=== PATIENT | female | born 1950 | race Caucasian/White ===

== ENCOUNTER 2024-03-09 15:46 | Outpatient (REF) | payer OTHER, MEDICARE, SELFPAY ==
[2024-03-09 17:15] LABS: Anion Gap 14 (12-20); Blood Urea Nitrogen 9 mg/dL (9-16); Calcium 9.7 mg/dL (8.4-10.2); Carbon Dioxide 29 mmol/L (22-29); Chloride 91 mmol/L (96-108); Estimated Glomerular Filt Rate > 60; Glucose Random 123 mg/dL (60-115); Potassium 3.5 mmol/L (3.3-5.1); Sodium 130 mmol/L (135-145)
[2024-03-09 17:41] LABS: Erythrocyte Sedimentation Rate 18 MM/HR (0-20)
[2024-03-13 17:19] LABS: Lyme Abs Screen <0.90 index
== END 2024-03-09 15:47 | disposition home or self-care (01) ==
LOC: HO.LAB 15:46
PROVIDERS: PCP Internal Medicine; Visit Provider Psychiatry & Neurology Neurology
DX: G44.229 Chronic tension-type headache, not intractable (principal)
CPT/HCPCS: 36415; 80048; 85652; 86617; 86618

== ENCOUNTER 2025-01-10 10:30 | Outpatient (AMB) | payer MEDICARE, OTHER, SELFPAY ==
--- NOTE | 2025-01-10 10:41 | A.OFFVIS_ITS ---
Intake Visit Reasons: 6M [facility] Allergies ampicillin Allergy (Unknown, Verified 01/08/25 09:55) Unknown levofloxacin (From Levaquin) Allergy (Unknown, Verified 01/08/25 09:55) Unknown Medication List - Last Reconciled 01/10/25 by Shari Morgan MD epinephrine subcut ezetimibe 10 mg PO DAILY fexofenadine 180 mg PO DAILY fluticasone propionate 50 mcg/actuation 2 sprays intranasal DAILY hydrochlorothiazide 25 mg PO DAILY latanoprost 0.005% 1 drp ophthalmic (eye) BEDTIME levothyroxine 50 mcg PO QAM lisinopril 2.5 mg PO DAILY ondansetron 4 mg PO DAILY rosuvastatin 10 mg PO DAILY sennosides-docusate sodium 8.6-50 mg (Senexon-S) 1 - 2 tabs PO BID PRN tramadol 50 mg PO Q6H trazodone 150 mg PO BEDTIME PRN varenicline tartrate 1 mg PO BID HPI Comments Details: 74 years old woman with chronic tension-type headaches, analgesic rebound headaches, and tendency for occipital neuralgia. [facility] Medical History (Updated 01/10/25 @ 10:42 by Shari Morgan MD) Chronic tension type headache Physical Exam Neuro Other: Mental Status: Alert and oriented to person, place, and time. Normal attention. Normal spontaneous speech, fluency, and comprehension. No obvious issues with mood and memory. Affect is appropriate. Cranial Nerves: CN II: Visual ruiz full to confrontation, visual acuity intact. CN III, IV, : Pupils equal, round, reactive to light and accommodation. Extraocular movements are normal. CN V: Facial sensation is normal. CN VII: Facial movements symmetrical. CN VIII: Hearing intact to bedside conversation is normal. CN IX, X: Palate elevates symmetrically. CN XI: Shoulder shrug and head turn symmetrical. CN XII: Tongue midline without atrophy or fasciculations. Extrapyramidal: Full facial expressions and blinking. No rigidity. Movements are appropriate with no tremor or abnormality. Speech: Normal; no dysarthria or tremor. Assessment & Plan Assessment & Plan (1) Chronic tension type headache: Comment: Meds tried for headaches: Propranolol, fiorecet, tramadol, topiramate MRI brain at [facility] in Feb 2024: Mild diff atrophy, mild mVD, small choroid plexus cyst Code(s): G44.229 - Chronic tension-type headache, not intractable Category: Medical Qualifiers: Intractability: intractable Qualified Code(s): G44.221 - Chronic tension-type headache, intractable Plan Impression: a: Chronic tension type headaches b: Chronic stress related to her brother's psychiatric disease Rec: a: Duloxetine 20mg bid b: Walk daily Medications: New duloxetine 20 mg PO BID 180 caps 0RF Coding Level of Care Code Est Pt Level 4 (13353) Diagnoses Chronic tension-type headache, intractable G44.221 Intractability: intractable
== END 2025-01-10 10:55 | disposition home or self-care (01) ==
LOC: HO.HSM 10:31
PROVIDERS: PCP Internal Medicine; Referring Provider Internal Medicine; Visit Provider Psychiatry & Neurology Neurology
DX: G44.221 Chronic tension-type headache, intractable (principal)
CPT/HCPCS: 99214

== ENCOUNTER → 2025-01-10 10:30 | Outpatient (BNVA) | payer MEDICARE, OTHER, SELFPAY | PROVIDERS: PCP Internal Medicine; Referring Provider Internal Medicine; Visit Provider Psychiatry & Neurology Neurology | DX: G44.221 Chronic tension-type headache, intractable (principal) | CPT/HCPCS: 99212 ==

== ENCOUNTER 2025-02-07 09:51 | Outpatient (AMB) | payer MEDICARE, OTHER, SELFPAY ==
--- NOTE | 2025-02-07 09:53 | A.OFFVIS_ITS ---
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 At the time of her last visit, she was tried on duloxetine 20 mg twice daily and advised for daily walking/exercise. She tells me today that unfortunately she felt ?horrible? when she took the duloxetine. She is no longer taking duloxetine. In the past, they have tried numerous medications for control of her headaches including propranolol, Fioricet, tramadol, and topiramate. She reports that most of these medications gave her side effects and at the time of the trials, her headaches were in general much worse. She tells me that currently her headaches are occurring a couple times per week but are relatively short-lived occurring for approximately 15 minutes up to a couple of hours at maximum. Her headaches are frontal or occipital radiating into the neck. She describes her pain is a dull aching sensation. She denies any light sensitivity, sound sensitivity, or other notable symptoms with the headaches. Generally, her headaches are triggered by weather changes or acute stress. She tells me that her brother has a diagnosis of schizophrenia and is very paranoid. He calls her several times per day and she finds that most of her stress is related to his psychiatric needs. She has been implementing lifestyle changes in efforts to help her headaches. She has been engaging in moderate levels of daily exercise, has been doing yoga, and has been using breathing techniques when she does develop stress and a feeling of tension. She finds that these techniques have been remarkably beneficial in terms of headache control. She notes that her headaches has been daily in the past and with these modalities, she has found that her headaches are significantly less bothersome and are not currently part of her day-to-day life. She is currently not taking anything specifically for headache though she does note that she started taking magnesium recently for some leg cramping that she was having. She takes Tylenol on occasion when her headaches last more than 15 minutes or so. This works well for acute therapy and she is using it sparingly. Prior medication trials: Propranolol Topiramate Duloxetine Tramadol Fioricet Past workup: MRI of the brain at [facility] February 2024: Mild atrophy, mild microvascular disease, small choroid plexus cyst. [facility] Medical History (Updated 01/10/25 @ 10:42 by Shari Morgan MD) Chronic tension type headache Review of Systems Const All systems reviewed & are unremarkable except as noted in HPI and below Physical Exam Vital Signs: Last Vital Signs Pulse 73 02/07/25 10:02 Resp 16 02/07/25 10:02 BP 128/80 02/07/25 10:02 Pulse Ox 97 02/07/25 10:02 Oxygen Delivery Method Room Air 02/07/25 10:02 BMI result Body Mass Index 22.9 Const General: cooperative, healthy appearing, comfortable and no acute distress Nutritional Appearance: well nourished Orientation/consciousness: patient oriented x3 Limitations: no limitations HEENT Head: Yes normal to inspection and Yes normocephalic Eyes General: appearance normal, both eyes and all related structures Visual Ruiz: normal visual ruiz by confrontation Alignment and Position: alignment normal Periorbital: periorbital findings normal Eyelids: Yes eyelids normal Conjunctivae: conjunctivae normal Sclerae: sclerae normal Back/Spine/Pelvis Other: Bilateral upper trapezius tightening with some trigger points to the right trapezius muscle. Neuro General: patient oriented x3 Cranial nerves: Yes CN's II-XII intact bilaterally and Yes Facial sensation intact/muscles of mastication intact Cognition (Neuro): normal cognition Gait exam (Neuro): Normal gait present Motor exam (neuro): 5/5 motor strength present throughout and no tremor noted Sensory Exam: double simultaneous stimulation for sensation normal Romberg Test: Negative Pupils: Normal pupillary reactivity/response: bilateral Psych Appearance: grossly normal Mental Status: mental status grossly normal Speech and movement: Normal speech and movement present and Clear speech present Affect: normal affect Attitude: cooperative Thought process: Normal thought process present Thought content: Normal thought content present Insight: Good insight present (Psych) Judgement: Good judgement present (Psych) Assessment & Plan Assessment & Plan (1) Chronic tension type headache: Comment: Meds tried for headaches: Propranolol, fiorecet, tramadol, topiramate MRI brain at [facility] in Feb 2024: Mild diff atrophy, mild mVD, small choroid plexus cyst Code(s): G44.229 - Chronic tension-type headache, not intractable Category: Medical Qualifiers: Intractability: intractable Qualified Code(s): G44.221 - Chronic tension-type headache, intractable Plan: . Mara Griffin is a 74-year-old female patient with a past history of thyroid disease and insomnia who is following in the clinic for tension-type headaches. Despite trials of numerous therapies in the past, she has not had much luck with pharmaceutical management as she can be very sensitive to medication. She finds that implementation of exercise, yoga, and breathing techniques has made the most difference. She does continue to have triggered headaches especially with high stress levels. Typically, headaches last only a proximally 15 minutes as she can utilize breathing techniques at onset of headache. She feels that her headaches are really very well-controlled with these modalities at this time and is not interested in any new pharmaceutical agents. We did discuss some nutraceuticals including magnesium and riboflavin. She has already started some magnesium supplementation and I did give recommendations on dosing specific to headache and gave her information on riboflavin supplementation that she can try concurrently with the use of magnesium if she wishes. For now, she would like to follow up on an as-needed basis as she feels that she is doing relatively well. Coding Level of Care Code Est Pt Level 3 (40659) Diagnoses Chronic tension-type headache, intractable G44.221 Intractability: intractable
[2025-02-07 10:02] VITALS: BP 128/80; PULSE 73; RESP 16; O2SAT 97; BMI 22.9
--- OUTSIDE RECORDS SUMMARY | 2025-02-07 11:50 | XMS_ITS | Clinical Summary ---
Author Organization [facility] Address [address] [place] [address] Phone Care Team Providers Care Direct Support Staff Name Role Phone Melissa Copeland MD Primary Care Provider [phone] Allergies No known active allergies Social History Tobacco Use Types Packs/Day Years Used Date Smoking Tobacco: Never Assessed Comments Unknown Sex and Gender Information Value Date Recorded Sex Assigned at Not on file Legal Sex Female 9:21 PM EST Gender Identity Not on file Sexual Orientation Not on file Plan of Treatment Upcoming Encounters Date Type Department Care Team ([facility] st Contact Info) Description 08/21/2025 10:00 AM EDT Office Visit Gastroenterology - [address] [facility] [address] [place] [address] Tena Oropeza, LAURA [address] [facility] [address] [place] [address] Health Maintenance Due Date Last Done Comments Breast Cancer Screening 1950 Colorectal Cancer Screening: Colonoscopy 1950 DTaP,Tdap,and Td Vaccines (1 - Tdap) 10/19/1971 Zoster Vaccines (1 of 2) 2002 Pneumococcal Vaccine: 50+ Years (2 of 2 - PCV20 or PCV21) 11/13/2020 11/14/2019 Cholesterol Screening (Lipid Panel) 03/21/2022 Falls Risk Assessment 03/21/2022 Hepatitis C Screening 03/21/2022 Medicare Annual Wellness Visit 03/21/2022 Osteoporosis Screening (Bone Density Screening) 03/21/2022 Social Influencers of Health Screening 03/21/2022 Depression Screening 04/19/2024 Hypertension/CHF/CAD Annual BMP Blood Test 08/26/2024 COVID-19 Vaccine (2 - 2024-2 6 season) 2024 07/10/2020 Influenza Vaccine (#1) 2024 , 01/24/2020, 12/27/2018 RSV Immunization Adult Patients (1 - 1-dose 75+ series) 10/19/2027 HIB Vaccines Aged Out No longer eligi ble based on patient's age to complete this topic HPV Vaccines Aged Out No longer eligi ble based on patient's age to complete this topic Hepatitis A Vaccines Aged Out No long er eligible based on patient's age to complete this topic Hepatitis B Vaccines Aged Out No long er eligible based on patient's age to complete this topic IPV Vaccines Aged Out No longer eligi ble based on patient's age to complete this topic MMR Vaccines Aged Out No longer eligi ble based on patient's age to complete this topic Meningococcal ACWY Vaccine Aged Out N o longer eligible based on patient's age to complete this topic Meningococcal B Vaccine Aged Out No l onger eligible based on patient's age to complete this topic RSV Immunization Patients Under 20 months Aged Out No longer eligible b ased on patient's age to complete this topic Varicella Vaccines Aged Out No longer eligible based on patient's age to complete this topic Insurance MEDICARE [facility] Care Teams Direct Support Staff Relationship Specialty Start Date End Date Melissa Copeland MD [address] [place] [address] PCP - General 03/20/10
== END 2025-02-07 10:25 | disposition home or self-care (01) ==
LOC: HO.HSM 09:52
PROVIDERS: PCP Internal Medicine; Visit Provider Nurse Practitioner
DX: G44.221 Chronic tension-type headache, intractable (principal)
CPT/HCPCS: 99213

== ENCOUNTER → 2025-02-07 09:51 | Outpatient (BNVA) | payer MEDICARE, OTHER, SELFPAY | PROVIDERS: PCP Internal Medicine; Visit Provider Nurse Practitioner | DX: G44.221 Chronic tension-type headache, intractable (principal) | CPT/HCPCS: 99212 ==